=== PATIENT | female | born 1990 | race American Indian/Alaskan Native ===

== ENCOUNTER 2020-12-19 12:03 | Emergency (ER) | payer MEDICAID ==
[2020-12-19 12:57] VITALS: BP 114/69
[2020-12-19 14:21] LABS: Bilirubin,Urine NEG (Negative); Blood,Urine NEG (Negative); Color,Urine Straw (Yellow); Protein,Urine <15 mg/dL mg/dL (Negative); Urobilinogen,Urine < 2.0 mg/dL (<2.0)
[2020-12-19 14:25] LABS: RBC,Urine < 1.0 /HPF (0.0-6.0)
[2020-12-19 14:32] LABS: Alanine Aminotransferase 10 units/L (7-56); Albumin 3.8 g/dL (3.9-5); Blood Urea Nitrogen 9 mg/dL (7-17); Calcium 8.9 mg/dL (8.4-10.2); Hemolysis Index 62
[2020-12-19 14:34] LABS: BUN/Creatinine Ratio 23; Eosinophils # (Auto) 0.1 K/mm3 (0.0-0.4); Eosinophils % (Auto) 1.4 % (0.0-4.3); Hematocrit 32.2 % (30.3-42.9); Hemoglobin 10.9 gm/dl (10.1-14.3); Lymphocytes # (Auto) 1.6 K/mm3 (1.2-5.4); Lymphocytes % (Auto) 20.8 % (13.4-35.0); Mean Corpuscular HGB Conc 34 % (30-34); Mean Corpuscular Volume 92 fl (79-97); Monocytes # (Auto) 0.3 K/mm3 (0.0-0.8); Monocytes % (Auto) 4.2 % (0.0-7.3); Platelet Count 220 K/mm3 (140-440); Red Blood Count 3.49 M/mm3 (3.65-5.03)
--- NOTE | 2020-12-19 15:35 | Event Note ---
ED Screening Note Date of service: 12/19/20 Time: 15:33 ED Screening Note: 30-year-old female patient presents to the emergency department with complaints of lower abdominal pain, nausea, and vomiting for 3 days. No known sick contacts. No current steroid or antibiotic use. Patient's last menstrual cycle was early September. She has not taken a test. She has been 4 times before. Denies fever, chills, diarrhea, constipation, vaginal bleeding, vaginal discharge. General: Awake, appropriately interactive, no acute distress. Neck: Supple. Full range of motion intact. Cardiovascular: Normal peripheral perfusion. Pulmonary: No respiratory distress. Patient is speaking normally without use of accessory muscles. Skin: No apparent rashes or lesions. Neurological: No facial asymmetry. Speech is clear. Follows commands. Patient is alert and oriented. Musculoskeletal: Moves all four extremities spontaneously with normal range of motion. Psych: Cooperative. Appropriate mood and affect. I have greeted and performed a focused rapid initial assessment of this patient. A comprehensive ED assessment and evaluation of the patient, analysis of all test results, and completion of the medical decision-making process will be conducted by additional ED providers. This initial assessment/diagnostic orders/clinical plan/treatment(s) is/are subject to change based on patients health status, clinical progression and re-assessment. Further treatment and workup at subsequent clinical provider's discretion. Patient/guardian urged not to elope from the ED as their condition may be serious if not clinically assessed and managed.
[2020-12-19] MEDS ORDERED: FAMOTIDINE 20 MG/2 ML INJ IV ONE (17:05)
[2020-12-19] MEDS ORDERED: PROCHLORPERAZINE EDISYLATE 10 MG/2 ML VIAL IV ONE (17:05)
[2020-12-19] MEDS ORDERED: SODIUM CHLORIDE 0.9% 1000 ML 1,000 ML IV ONE (17:05)
--- NOTE | 2020-12-19 18:56 | Ultrasound Report ---
ULTRASOUND OBSTETRIC INDICATION / CLINICAL INFORMATION: Pain - lower abdominal pain. TECHNIQUE: Transabdominal. COMPARISON: None. FINDINGS: There is a single intrauterine . Biparietal Diameter = 2.92 cm = 15.2 weeks.days Head Circumference = 10.78 cm = 15.1 weeks.days Abdominal Circumference = 8.42 cm = 14.5 weeks.days Femur Length = 1.76 cm = 15.1 weeks.days Average Ultrasound Age (AUA) = 15.1 weeks.days Heart Rate: 168 beats per minute. Position: cephalic. Placenta: posterior and free of the os. Amniotic Fluid Volume: Qualitatively normal IMPRESSION: 1. Single, living intrauterine with estimated sonographic age of 15.1 weeks.days 2. No significant sonographic abnormality. Signer Name: Isaac Trinidad MD Signed: 12/19/2020 6:52 PM Workstation Name: [id number]
--- NOTE | 2020-12-19 19:23 | Emergency Department Report ---
ED N/V/D HPI - General Chief complaint: Abdominal Pain Stated complaint: LOWER ABD PAIN, VOMITING, DIZZINESS Source: patient Mode of arrival: Ambulatory Limitations: No Limitations - History of Present Illness Initial comments: Patient is a A0 30-year-old -Eritre[place] female who is approximately 14 weeks gestation who presents to the ED with complaint of acute onset persistent diffuse low abdominal pain with nausea and vomiting for the last 3 days. Patient also states that in the last 24 hours her symptoms have been persistent and worse such that she has not been able to keep anything down and has been having intermittent lightheadedness in the last 12 hours. Patient states that no one else at home or at her job have had similar symptoms and she attributes the symptoms to possibly due to her . Patient states that she has not been evaluated by any [employer] physician since conception. Patient denies dizziness, syncope, chest pain, shortness of breath, vaginal bleeding, vaginal discharge, dysuria, diarrhea, urinary frequency and urgency, low back pain, headache, fever and chills or change in vision. MD complaint: nausea, vomiting, abdominal pain -: Sudden, days(s) (3) Description of Vomiting: food contents Associated Abdominal Pain: Yes Location: epigastric Radiation: none Severity: moderate Pain Scale: 5 Quality: cramping, aching, dull Consistency: constant Improves with: none Worsens with: vomiting Context: other () Associated Symptoms: denies other symptoms, malaise, nausea/vomiting. denies: myalgias, chest pain, cough, diaphoresis, fever/chills, headaches, loss of appetite, rash, shortness of breath, syncope - Related Data Previous Rx's Medication Instructions Recorded Last Taken Type Famotidine [Pepcid] 20 mg PO BID #60 tablet 12/19/20 Unknown Rx Promethazine [Phenergan] 25 mg PO Q8HR PRN #40 tab 12/19/20 Unknown Rx Allergies Allergy/AdvReac Type Severity Reaction Status Date / Time No Known Allergies Allergy Unverified 12/19/20 12:44 ED Review of Systems ROS: Stated complaint: LOWER ABD PAIN, VOMITING, DIZZINESS Other details as noted in HPI Constitutional: denies: chills, fever Eyes: denies: eye pain, eye discharge, vision change ENT: denies: ear pain, throat pain Respiratory: denies: cough, shortness of breath, wheezing Cardiovascular: denies: chest pain, palpitations Endocrine: no symptoms reported Gastrointestinal: abdominal pain (Lower abdominal pain), nausea, vomiting. denies: diarrhea Genitourinary: denies: urgency, dysuria, discharge Musculoskeletal: denies: back pain, joint swelling, arthralgia Skin: denies: rash, lesions Neurological: denies: headache, weakness, paresthesias Psychiatric: denies: anxiety, depression Hematological/Lymphatic: denies: easy bleeding, easy bruising ED Past Medical Hx - Past Medical History Previous Medical History?: Yes Additional medical history: anemia - Surgical History Past Surgical History?: Yes Additional Surgical History: metal plate in right heel - Medications Home Medications: Home Medications Medication Instructions Recorded Confirmed Last Taken Type Famotidine [Pepcid] 20 mg PO BID #60 tablet 12/19/20 Unknown Rx Promethazine [Phenergan] 25 mg PO Q8HR PRN #40 tab 12/19/20 Unknown Rx ED Physical Exam - General Limitations: No Limitations General appearance: alert, in no apparent distress - Head Head exam: Present: atraumatic, normocephalic, normal inspection - Eye Eye exam: Present: normal appearance, PERRL, EOMI Pupils: Present: normal accommodation - ENT ENT exam: Present: normal exam, normal orophraynx, mucous membranes moist, TM's normal bilaterally, normal external ear exam - Neck Neck exam: Present: normal inspection, full ROM - Respiratory Respiratory exam: Present: normal lung sounds bilaterally. Absent: respiratory distress, wheezes, rales, chest wall tenderness, accessory muscle use, prolonged expiratory - Cardiovascular Cardiovascular Exam: Present: regular rate, normal rhythm, normal heart sounds. Absent: systolic murmur, diastolic murmur, rubs, gallop - GI/Abdominal GI/Abdominal exam: Present: soft, tenderness (Palpable mild diffuse lower abdominal tenderness), normal bowel sounds. Absent: distended, guarding, rebound, hyperactive bowel sounds - Extremities Exam Extremities exam: Present: normal inspection, full ROM, normal capillary refill - Back Exam Back exam: Present: normal inspection, full ROM. Absent: tenderness, CVA tenderness (R), CVA tenderness (L), muscle spasm, paraspinal tenderness, vertebral tenderness - Neurological Exam Neurological exam: Present: alert, oriented X3, CN II-XII intact, normal gait, reflexes normal - Psychiatric Psychiatric exam: Present: normal affect, normal mood - Skin Skin exam: Present: warm, dry, intact, normal color. Absent: rash ED Course Vital Signs 12/19/20 12/19/20 12:48 19:48 Temperature 98.9 F Pulse Rate 87 87 Respiratory 16 16 Rate Blood Pressure 114/69 O2 Sat by Pulse 100 98 Oximetry ED Medical Decision Making - Lab Data Result diagrams: 12/19/20 13:21 12/19/20 13:21 - Radiology Data [facility] [address] [place] [address] Ultrasound Report Signed Patient: VADIM MARINO MR#: [id number] : 1990 Acct:[id number] Age/Sex: 30 / F ADM Date: 12/19/20 Loc: ED Attending Dr: Ordering Physician: TAHIRA HASSAN Date of Service: 12/19/20 Procedure(s): US OB <= 14 weeks fetus Accession Number(s): [id number] cc: TAHIRA HASSAN ULTRASOUND OBSTETRIC INDICATION / CLINICAL INFORMATION: Pain - lower abdominal pain. TECHNIQUE: Transabdominal. COMPARISON: None. FINDINGS: There is a single intrauterine . Biparietal Diameter = 2.92 cm = 15.2 weeks.days Head Circumference = 10.78 cm = 15.1 weeks.days Abdominal Circumference = 8.42 cm = 14.5 weeks.days Femur Length = 1.76 cm = 15.1 weeks.days Average Ultrasound Age (AUA) = 15.1 weeks.days Heart Rate: 168 beats per minute. Position: cephalic. Placenta: posterior and free of the os. Amniotic Fluid Volume: Qualitatively normal IMPRESSION: 1. Single, living intrauterine with estimated sonographic age of 15.1 weeks.days 2. No significant sonographic abnormality. Signer Name: Isaac Trinidad MD Signed: 12/19/2020 6:52 PM Workstation Name: [id number] Transcribed By: JEOVANNY Dictated By: Isaac Trinidad MD Electronically Authenticated By: Isaac Trinidad MD Signed Date/Time: 12/19/201851 DD/ 49 TD/TT: - Medical Decision Making This is a A0 30-year-old -Eritre[place] female who is approximately 14 weeks gestation who presents to the ED with complaint of acute onset persistent diffuse low abdominal pain with nausea and vomiting for the last 3 days. Patient also states that in the last 24 hours her symptoms have been persistent and worse such that she has not been able to keep anything down and has been having intermittent lightheadedness in the last 12 hours. Patient states that no one else at home or at her job have had similar symptoms and she attributes the symptoms to possibly due to her . Patient states that she has not been evaluated by any [employer] physician since conception. In the ED, patient is alert and oriented x3 and is not in any distress. Patient was treated for nausea and vomiting and also given antacids and normal saline 1 L IV bolus x1. Lab test results were reviewed and are all [place] [id number] and acute mild hyponatremia of 131 mmol/L. Pelvic ultrasound showed a single, living intrauterine with estimated sonographic age of 15.1 weeks with a heart rate of 168 bpm. No significant sonographic abnormality. On reevaluation, patient passed all oral fluid challenge in the ED and was able to keep oral fluids taken by mouth. Patient vital signs are stable and patient is alert and oriented x3 and her symptoms have resolved. Patient was therefore discharged home on medications including antiemetics and antacids and was advised to maintain a clear liquid diet for 12 to 24 hours and to follow-up with [employer] physician in 3 to 5 days for reevaluation. Patient is ad vised return to the ED immediately if symptoms get worse. - Differential Diagnosis Dehydration; hyperemesis gravidarum; UTI; GERD; gastritis; ovarian cyst Critical care attestation.: If time is entered above; I have spent that time in minutes in the direct care of this critically ill patient, excluding procedure time. ED Disposition Clinical Impression: Hyperemesis gravidarum, Abdominal pain during in second trimester Disposition: DC-01 TO HOME OR SELFCARE Is pt being admited?: No Does the pt Need Aspirin: No Condition: Stable Instructions: Abdominal Pain During , [id number], Morning Sickness, [id number], Abdominal Pain (ED) Additional Instructions: All lab test results were reviewed and are all nonactionable. [place] [id number]. The transvaginal ultrasound showed a single live IUP of approximately 15 weeks and 1 day and with a heart rate of 168 bpm. Therefore take medications with food, drink plenty of fluids and follow-up with your [employer] physician in 5 to 7 days for reevaluation. Return to the ED immediately if symptoms get worse. Prescriptions: Famotidine [Pepcid] 20 mg PO BID #60 tablet Promethazine [Phenergan] 25 mg PO Q8HR PRN #40 tab PRN Reason: Nausea Referrals: SHAMEKA TOLBERT MD [Staff Physician] - 3-5 Days Time of Disposition: 19:23 Print Language: VIETNAMESE
== END 2020-12-19 19:48 | disposition home or self-care (01) ==
LOC: ED 12:03
DX: O21.0 Mild hyperemesis gravidarum (principal); O26.891 Other specified pregnancy related conditions, first trimester; R10.84 Generalized abdominal pain; Z3A.14 14 weeks gestation of pregnancy; Z98.890 Other specified postprocedural states; Z79.899 Other long term (current) drug therapy
CPT/HCPCS: 36415; 76805; 80053; 81001; 83690; 83735; 84702; 85025; 96361; 96374; 96375; 99284; J0780; J7030; 76801

== ENCOUNTER 2021-03-19 14:02 | Outpatient (CLI) | payer OTHER | END 2021-03-19 15:22 | disposition home or self-care (01) | LOC: APU 14:02 | CPT/HCPCS: 59025 ==

== ENCOUNTER 2021-05-14 23:27 | Outpatient (CLI) | payer OTHER ==
[2021-05-14 23:47] VITALS: BP 118/73
[2021-05-14] MEDS ORDERED: LACTATED RINGERS 1,000 ML IV ONE (23:59)
[2021-05-15 00:35] LABS: Bilirubin,Urine SM (Negative); Blood,Urine NEG (Negative); Color,Urine Yellow (Yellow); Mucus,Urine 2+ /HPF
[2021-05-15 00:52] LABS: Ictotest,Urine Negative (Negative)
[2021-05-15] MEDS ORDERED: LACTATED RINGERS 1,000 ML IV ONE (01:50)
[2021-05-15] MEDS ORDERED: TERBUTALINE 1 MG/1 ML INJ SUB-Q PRN (01:51)
== END 2021-05-15 02:25 | disposition home or self-care (01) ==
LOC: TRG 23:27 → APU 23:29 → TRG 05-15 02:25
PROVIDERS: ATTEND Obstetrics & Gynecology
DX: O62.9 Abnormality of forces of labor, unspecified (principal); O26.893 Other specified pregnancy related conditions, third trimester; R10.9 Unspecified abdominal pain; Z3A.36 36 weeks gestation of pregnancy
CPT/HCPCS: 36415; 59025; 81001; 84112; 96360; J7120

== ENCOUNTER 2021-05-19 20:44 | Inpatient (IN) | payer OTHER ==
[2021-05-19] MEDS ORDERED: LACTATED RINGERS 500 ML IV ONE (21:32)
[2021-05-19] MEDS ORDERED: AMPICILLIN/NS 2 GM/100 ML 2 GM/100 ML BAG IV ONE (21:36)
[2021-05-19] MEDS ORDERED: OXYTOCIN 10 UNIT/1 ML INJ IM PRN (21:39)
[2021-05-19] MEDS ORDERED: MINERAL OIL 30 ML ORAL LIQD PO PRN (21:39)
[2021-05-19] MEDS ORDERED: CARBOPROST TROMETHAMINE 250 MCG/1 ML INJ IM PRN (21:39)
[2021-05-19] MEDS ORDERED: miSOPROStol 200 MCG TAB PR PRN (21:39)
[2021-05-19] MEDS ORDERED: METHYLERGONOVINE MALEATE 0.2 MG/ML VIAL IM PRN (21:39)
[2021-05-19] MEDS ORDERED: TERBUTALINE 1 MG/1 ML INJ SUB-Q PRN (21:39)
[2021-05-19] MEDS ORDERED: LIDOCAINE (2%) 20 MG/1 ML VIAL 20 ML MDV INFILTRATI ONE (21:39)
[2021-05-19] MEDS ORDERED: ACETAMINOPHEN 325 MG TAB PO PRN (21:39)
[2021-05-19] MEDS ORDERED: BUTORPHANOL 2 MG/1 ML INJ IV PRN ×2 (21:39)
[2021-05-19] MEDS ORDERED: LOPERAMIDE 2 MG CAP PO PRN (21:39)
--- NOTE | 2021-05-19 21:49 | History and Physical Report ---
History of Present Illness Date of examination: 05/19/21 Chief complaint: leakage of fluid History of present illness: 31 yo at 36w5d ([facility] 06/11/21) c/b hx transfer from [place] late in , hx PTB x 2 at 33 and 36 weeks, hx trich pos, hx syphillis (s/p treatment) presenting from EMS with rupture of membranes at 2000, now 2 cm. Denies vaginal bleeding. Active fetus. No PNC available for review on admission. Past History Past Medical History: no pertinent history Past Surgical History: other (foot surgery) [employer] History: trichomonas Family/Genetic History: none Social history: no significant social history - Obstetrical History Expected Date of Delivery: 06/11/21 Actual Gestation: 36 Week(s) 5 Day(s) : 6 Para: 5 Hx # Term Pregnancies: 3 Number of Pregnancies: 2 Number of Living Children: 5 Medications and Allergies Allergies Allergy/AdvReac Type Severity Reaction Status Date / Time No Known Allergies Allergy Verified 05/15/21 00:01 Home Medications Medication Instructions Recorded Confirmed Last Taken Type Famotidine [Pepcid] 20 mg PO BID #60 tablet 12/19/20 Unknown Rx Promethazine [Phenergan] 25 mg PO Q8HR PRN #40 tab 12/19/20 Unknown Rx Active Meds: Active Medications Acetaminophen (Acetaminophen 325 Mg Tab) 650 mg PO Q4H PRN PRN Reason: Pain, Mild (1-3) Butorphanol Tartrate (Butorphanol 2 Mg/1 Ml Inj) 1 mg IV Q2H PRN PRN Reason: Pain, Moderate(4-6) LABOR PAIN Butorphanol Tartrate (Butorphanol 2 Mg/1 Ml Inj) 2 mg IV Q2H PRN PRN Reason: Pain , Severe (7-10) Carboprost Tromethamine (Carboprost Tromethamine 250 Mcg/1 Ml Inj) 250 mcg IM ONCE PRN PRN Reason: Uterine Bleeding Ephedrine Sulfate (Ephedrine Sulfate 50 Mg/1 Ml Inj) 10 mg IV Q2M PRN PRN Reason: Hypotension Lactated Ringer's (Lactated Ringers) 500 mls @ 999 mls/hr IV BOLUS ONE Stop: 05/19/21 22:02 Ampicillin Sodium (Ampicillin/Ns 2 Gm/100 Ml) 2 gm in 100 mls @ 100 mls/hr IV ONCE ONE; Protocol Stop: 05/19/21 22:35 Oxytocin/Sodium Chloride (Pitocin/Ns 30 Unit/500ml) 30 units in 500 mls @ 2 mls/hr IV TITR AIMEE; Protocol Lactated Ringer's (Lactated Ringers) 1,000 mls @ 125 mls/hr IV DIRECT AIMEE Oxytocin/Sodium Chloride (Pitocin/Ns 30 Unit/500ml) 30 units in 500 mls @ 40 mls/hr IV TITR AIMEE; Protocol Lidocaine (Lidocaine (2%) 20 Mg/1 Ml Vial 20 Ml Mdv) 20 ml INFILTRATI ONCE ONE Stop: 05/19/21 21:40 Loperamide HCl (Loperamide 2 Mg Cap) 2 mg PO ONCE PRN PRN Reason: give with Hemabate Methylergonovine Maleate (Methylergonovine Maleate 0.2 Mg/Ml Vial) 0.2 mg IM ONCE PRN PRN Reason: Uterine Bleeding Mineral Oil (Mineral Oil 30 Ml Oral Liqd) 30 ml PO QHS PRN PRN Reason: Constipation Misoprostol (Misoprostol 200 Mcg Tab) 800 mcg WI ONCE PRN PRN Reason: Uterine Bleeding Oxytocin (Oxytocin 10 Unit/1 Ml Inj) 10 unit IM ONCE PRN PRN Reason: Uterine Bleeding Terbutaline Sulfate (Terbutaline 1 Mg/1 Ml Inj) 0.25 mg SUB-Q ONCE PRN PRN Reason: Hyperstimulation/Hypertonicity Review of Systems All systems: negative (expect HPI) - Physical Exam Abdomen: Positive: normal appearance, soft Uterus: Positive: enlarged - Obstetrical FHR: category 1 Uterine Contraction Monitor Mode: External Cervical Dilatation: 2 Uterine Contraction Pattern: Irregular Results All other labs normal. Assessment and Plan - Patient Problems (1) premature rupture of membranes (PPROM) delivered, current hosp italization Current Visit: Yes Status: Acute Plan to address problem: Admit --Amp for GBS unknown --IV Pain medication prn, epidural is available --Need to obtain PNC when able -- labs and OB sono to confirm gestational age --Expectant management for now, pitocin when in labor --Anticipate
[2021-05-19] MEDS ORDERED: OXYTOCIN DRIP 30 UNITS/500 ML BAG IV SCH ×2 (22:00)
[2021-05-19] MEDS: LACTATED RINGERS 1,000 ML IV SCH (22:27)
[2021-05-19 22:43] LABS: Bilirubin,Urine NEG (Negative); Blood,Urine NEG (Negative); Color,Urine Colorless (Yellow); Protein,Urine <15 mg/dL mg/dL (Negative); RBC,Urine < 1.0 /HPF (0.0-6.0); Urobilinogen,Urine < 2.0 mg/dL (<2.0)
[2021-05-19 22:45] LABS: Basophils % (Auto) 0.3 % (0.0-1.8); Eosinophils % (Auto) 0.6 % (0.0-4.3); Hematocrit 29.9 % (30.3-42.9); Hemoglobin 9.9 gm/dl (10.1-14.3); Lymphocytes # (Auto) 1.9 K/mm3 (1.2-5.4); Lymphocytes % (Auto) 24.4 % (13.4-35.0); Mean Corpuscular HGB Conc 33 % (30-34); Mean Corpuscular Volume 81 fl (79-97); Monocytes # (Auto) 0.4 K/mm3 (0.0-0.8); Monocytes % (Auto) 5.3 % (0.0-7.3); Platelet Count 215 K/mm3 (140-440); Red Blood Count 3.68 M/mm3 (3.65-5.03); Red Cell Distribution Width 16.2 % (13.2-15.2)
[2021-05-19 22:46] LABS: Amphetamine Screen,Urine Negative; Benzodiazepines Screen,Urine Negative; Cannabinoid Screen,Urine Negative; Cocaine Screen,Urine Negative; Methadone Screen,Urine Negative; Opiate Screen,Urine Negative
[2021-05-19 23:02] LABS: Hepatitis C Virus Antibody Non-Reactive (NonReactive)
[2021-05-20] MEDS: LACTATED RINGERS 1,000 ML IV SCH (01:44)
[2021-05-20] MEDS ORDERED: NALOXONE 2 MG/2 ML INJ IV PRN (01:48)
[2021-05-20] MEDS ORDERED: ePHEDrine SULFATE 50 MG/1 ML INJ IV PRN ×2 (01:48→08:00)
--- NOTE | 2021-05-20 01:48 | Anesthesia Consultation ---
Anesthesia Consult and Med Hx Date of service: 05/20/21 - Airway Anesthetic Teeth Evaluation: Good ROM Head & Neck: Adequate Mental/Hyoid Distance: Adequate Mallampati Class: Class II Intubation Access Assessment: Probably Good - Pulmonary Exam CTA: Yes - Cardiac Exam Cardiac Exam: RRR - Pre-Operative Health Status ASA Pre-Surgery Classification: ASA2 Proposed Anesthetic Plan: Epidural - Pulmonary Hx Asthma: No COPD: No Hx Pneumonia: No - Cardiovascular System Hx Hypertension: No - Central Nervous System Hx Seizures: No Hx Psychiatric Problems: No - Endocrine Hx Renal Disease: No Hx End Stage Renal Disease: No Hx Hypothyroidism: No Hx Hyperthyroidism: No - Hematic Hx Anemia: No Hx Sickle Cell Disease: No - Other Systems Hx Alcohol Use: No
[2021-05-20] MEDS ORDERED: fentaNYL-BUPIV 2 MCG/ML-0.125% 200 MCG/100 ML BAG EPIDURAL SCH (02:00)
--- NOTE | 2021-05-20 02:11 | Progress Note ---
Labor Epidural - Labor Epidural Start Time: 01:54 Stop Time: 02:01 Performed by:: ANGELINA CAMARGO Procedure: Patient is requesting epidural for labor pain. H&P, and labs reviewed. Procedure explained, questions answered, consent obtained. Patient in sitting position with blood pressure cuff and pulse ox on and working. Timeout performed immediately before start of procedure. Sterile chlorahexadine 0.5% prep/drape. 3 mL 1% lidocaine skin wheal at L[3]-L[4]. 18-gauge [employer] epidural needle advanced to [id number]-fijlyfqnny with saline at 5 cm, positive return of csf. Epidural catheter advanced to [10] cm, negative aspiration for blood, positive for csf, confirmed with leg numbness with 1 ml 1.5% lidocaine with epinephrine. dexmedetomidine 5 mcg administered. Steri-strips and tegaderm applied, followed by tape reinforcement. Patient tolerated procedure well.
[2021-05-20] MEDS: AMPICILLIN/NS 1 GM/50 ML 1 GM/50 ML BAG IV SCH ×3 (02:27→06:45)
[2021-05-20] MEDS ORDERED: ONDANSETRON 4 MG/2 ML INJ IV PRN (02:33)
[2021-05-20] MEDS: ePHEDrine SULFATE 50 MG/1 ML INJ IV PRN ×5 (02:40→07:27)
[2021-05-20] MEDS ORDERED: ePHEDrine SULFATE 50 MG/1 ML INJ ONE ×2 (03:04→07:08)
--- NOTE | 2021-05-20 06:21 | Ultrasound Report ---
ULTRASOUND OBSTETRIC LIMITED INDICATION / CLINICAL INFORMATION: labor. Clinical Gestational Age (GA) in weeks, days: 36, 6 TECHNIQUE: Transabdominal. COMPARISON: 12/19/2020 FINDINGS: HEART RATE (beats per minute): 127 MEASUREMENTS: - Biparietal Diameter = 8.4 cm = 33, 6 weeks, days - Head Circumference = 31.6 cm = 35, 3 weeks, days - Abdominal Circumference = 27.9 cm = 32, 0 weeks, days - Femur Length = 6.8 cm = 34, 6 weeks, days - Estimated Weight (in grams, if calculated): 2182 PRESENTATION: Cephalic. ADDITIONAL FINDINGS: None. IMPRESSION: 1. Single live intrauterine gestation with an estimated gestational age of 34 weeks 0 days. hea rt tones are noted at 127 bpm. Signer Name: Romeo Rojas DO Signed: 05/20/2021 6:16 AM Workstation Name: [id number]
[2021-05-20] MEDS ORDERED: PHENYLEPHRINE 10 MG/1 ML INJ SDV IV PRN (07:18)
[2021-05-20] MEDS ORDERED: ePHEDrine SULFATE 50 MG/1 ML INJ IM PRN (07:19)
[2021-05-20] MEDS ORDERED: BICITRA ORAL LIQD 30ML PO ONE (07:59)
[2021-05-20] MEDS ORDERED: METOCLOPRAMIDE 10 MG/2 ML INJ IV ONE (07:59)
[2021-05-20] MEDS ORDERED: ceFAZolin/Water 2 GM/20 ML 2 GM/20 ML SYRINGE IV NR (08:00)
[2021-05-20] MEDS ORDERED: LACTATED RINGERS 1,000 ML IV SCH (08:00)
[2021-05-20] MEDS ORDERED: OXYTOCIN DRIP 30 UNITS/500 ML BAG IV SCH (08:00)
[2021-05-20] MEDS ORDERED: FAMOTIDINE 20 MG/2 ML INJ IV NR (08:30)
--- NOTE | 2021-05-20 12:30 | Event Note ---
Date: 05/20/21 Assumed care of patient. Records obtained from [facility] office and EDC confirmed to be 06/11/2021. EGA 36 weeks, 6 days gestation. No fluid/water seen on chux pad. Nurse states she has not seen any water leak out throughout her shift. Patient denies leaking at present time. ROM plus done: negative. Fern test done: negative. No pooling seen on speculum exam. PERICO 12.6. BPP 8/8. Category 1 FHR tracing. Patient is not michael. SVE 3.5/50/-4. Consulted with Dr. Bocanegra re: this patient. Dr. Bocanegra states to remove epidural and, when patient is able to walk, allow her to walk around, then repeat ROM plus test and speculum exam. Discussed this plan of care with patient and her nurse. Anesthesia notified.
--- NOTE | 2021-05-20 12:53 | Ultrasound Report ---
ULTRASOUND OBSTETRIC LIMITED INDICATION / CLINICAL INFORMATION: PERICO. Clinical Gestational Age (GA) in weeks, days: 36 weeks 6 days TECHNIQUE: Transabdominal. COMPARISON: None available. FINDINGS: Garcia gestation. HEART RATE (beats per minute): 162 AMNIOTIC FLUID INDEX (cm) = 12.6 (normal = 7-24 cm) PRESENTATION: Cephalic. ADDITIONAL FINDINGS: None. IMPRESSION: 1. Single live intrauterine gestation with normal PERICO. Signer Name: Moi Reynaga MD Signed: 05/20/2021 12:49 PM Workstation Name: [id number]
[2021-05-21 08:22] VITALS: BP 107/68
--- NOTE | 2021-05-21 08:35 | Ultrasound Report ---
ULTRASOUND BIOPHYSICAL PROFILE ULTRASOUND OB LIMITED INDICATION: ptl check for leaking. well-being. TECHNIQUE: Transabdominal ultrasound imaging. COMPARISON: 05/20/2021 FINDINGS: breathing movement = 2 Gross body movement = 2 tone = 2 Qualitative amniotic fluid volume = 2 Total biophysical score = 8/8 Amniotic fluid index is 11.0 cm. Presentation is cephalic. heart rate is 161 beats per minute. IMPRESSION: biophysical profile equals 8/8. Normal PERICO. Signer Name: Florentin Vega Jr, MD Signed: 05/21/2021 8:31 AM Workstation Name: [id number]
== END 2021-05-21 08:40 | disposition home or self-care (01) | DRG 782 ==
LOC: TRG 20:44 → APU 20:46 → TRG 21:39 → LD 21:40
PROVIDERS: ADMIT Obstetrics & Gynecology; ATTEND Obstetrics & Gynecology
DX: O42.913 Preterm premature rupture of membranes, unspecified as to length of time between rupture and onset of labor, third trimester (principal); Z3A.36 36 weeks gestation of pregnancy; Z20.822 Contact with and (suspected) exposure to COVID-19
CPT/HCPCS: 36415; 59025; 76815; 76816; 76819; 80307; 81001; 84112; 85025; 86592; 86762; 86803; 86850; 86870; 86900; 86901; 86922; 87806; G0378; J0290; J0595; J2405; J7120; U0003